=== PATIENT | male | born 1945 | race Caucasian/White ===

== ENCOUNTER 2016-09-10 11:29 | Emergency (ER) | payer MEDICARE ==
[2016-09-10] MEDS ORDERED: IOPAMIDOL 370 (76%) IV.SOLN 150 ML IV ONE (11:30)
[2016-09-10 12:20] LABS: ABSOLUTE NEUTROPHIL COUNT 4.7 K/mm3 (1.8-7.7); BASO # 0.1 K/mm3 (0.0-0.2); BASO % 0.8 % (0.2-1.0); EOS # 0.1 (0.0-0.5); EOS % 1.3 % (0.9-2.9); HEMATOCRIT 48.1 % (32.0-52.0); HEMOGLOBIN 16.3 gm/l (14.0-18.0); IMM NEUT% 0.5 % (0-1); LYMPH # 2.3 (1.0-4.8); LYMPH % 29.6 % (15-45); MEAN CELL VOLUME 89.7 fl (80.0-94.0); MEAN CORPUSCULAR HEMOGLOBIN 30.4 pg (27.0-31.0); MEAN CORPUSCULAR HGB CONC 33.9 g/dl (33.0-37.0); MEAN PLATELET VOLUME 8.4 fl (7.4-10.4); MONO # 0.5 (0.0-0.8); MONO % 6.9 % (4-12); NEUT % 60.9 % (43-75); PLATELET COUNT 244 K/mm3 (130-400); RED CELL DISTRIBUTION WIDTH 12.7 % (11.5-14.5)
[2016-09-10 12:40] LABS: ALB/GLOB RATIO 1.6 (>1.0); ALBUMIN 4.6 gm/dL (3.5-5.7); CALCIUM 9.3 mg/dL (8.6-10.3)
--- NOTE | 2016-09-10 13:52 | CT ---
HEAD W/O CON COMPARISON: None HISTORY: Sudden headache 2 weeks ago with intermittent headache since that time. Nausea and near syncope. TECHNIQUE: Using a [employer] Aquilion [address] scanner, images were obtained through the head. An automated dose reduction technique was used to minimize patient radiation dose. DOSE INFORMATION: CTDIvol (mGy): 34.40 DLP(mGycm): 634.00 FINDINGS: Mass: None Intracranial Hemorrhage: None Acute Infarction: None Cerebral hemispheres: Normal Basal ganglia: Normal Thalami: Normal Brainstem: Normal Cerebellum: Normal Ventricles: Normal Basilar cisterns: Normal Corpus callosum: Normal Pituitary fossa: Normal Middle ears and mastoid air cells: Normal Orbits and sinuses: Normal Skull and scalp: Normal Dural sinuses and vessels: Normal IMPRESSION: Normal study. Report was sent to the emergency department electronic medical record system 09/10/2016 at 13:53.
--- NOTE | 2016-09-10 13:52 | CT ---
CTA HEAD W/ POST PROCESS, CTA CAROTID W/ POST PROCESS COMPARISON: Head CT without contrast, 09/10/2016 HISTORY: Sudden headache 2 weeks ago with intermittent headache since that time. Nausea and near syncope. TECHNIQUE: [employer] Aquilion [address] scanner. Unenhanced images obtained through the head and neck. Intravenous injection 80 mL [id number]. Contrast-enhanced images obtained. Under concurrent supervision and interpretation, requiring a separate 3-D workstation, the molecular technologist created 3-D CT angiograms. An automated dose reduction technique was used to minimize patient radiation dose. Dose information: CTDIvol (mGy): 61.50 DLP(mGycm): 2627.00 FINDINGS (CT angiogram head): 3-D CT angiogram findings: No vessel occlusion. Normal mentasta of [place]. No arteriovenous malformation. No aneurysm. FINDINGS (CT angiogram carotid): Aortic arch: Normal. Brachiocephalic artery: Normal. Right common carotid artery: Normal. Right internal carotid artery: 50-69% stenosis at the origin. Right external carotid artery: Normal. Right vertebral artery: Normal. Right subclavian artery: Normal. Left subclavian artery: Normal. Left common carotid artery: Normal. Left internal carotid artery: Less than 50% diameter stenosis at the origin. Left external carotid artery: Normal. Left vertebral artery: Normal. Internal jugular veins: Normal. Airway: Normal Lymph nodes: Normal Salivary glands: Normal Thyroid gland: Normal. Muscles: Normal. Spine: C4-5, C5-6, C6-7 mild to moderate spondylosis. 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 Superior mediastinum: Normal Lung apices: Normal. IMPRESSION: 1. Right internal carotid artery 50-69% stenosis at the origin. 2. Left internal carotid artery less than 50% diameter stenosis. Carotid stenosis calculation based on NASCET criteria. The report was sent to the emergency department electronic medical record system, 09/10/2016 at 13:53
[2016-09-10 14:13] LABS: URINE BILIRUBIN NEGATIVE (NEGATIVE); URINE BLOOD NEGATIVE (NEGATIVE); URINE GLUCOSE (UA) NEGATIVE (NEGATIVE); URINE LEUKOCYTE ESTERASE NEGATIVE (NEGATIVE); URINE NITRITE NEGATIVE (NEGATIVE); URINE PROTEIN NEGATIVE (NEGATIVE); URINE UROBILINOGEN NORMAL (0-1 mg/dl)
[2016-09-10 14:19] LABS: URINE APPEARANCE CLEAR; URINE COLOR YELLOW
[2016-09-10 15:16] LABS: GLUCOSE,CSF 57 mg/dL (70% OF SERUM)
[2016-09-10 15:43] LABS: CSF APPEARANCE CLEAR; CSF COLOR COLORLESS; CSF RBC < 10 k/uL; CSF WBC < 10.0 /uL (<10)
== END 2016-09-10 16:41 | disposition home or self-care (01) ==
LOC: ED 11:29
DX: R51 Headache (principal); R53.81 Other malaise; R11.0 Nausea
CPT/HCPCS: 89051; 85025; 87070; 80053; 82945; 87205; 81003; 84443; 84157; 70450; 70496; 70498; 99284 ×2; 62270 ×2; Q9967